=== PATIENT | male | born 1985 | race Caucasian/White ===

== ENCOUNTER 2019-05-22 03:08 | Emergency (ER) | payer OTHER ==
[~2019-05-22] VITALS: Ht 172.7 cm; Wt 99.3 kg
[2019-05-22 03:15] VITALS: Ht 172.7 cm; Wt 99.3 kg
[2019-05-22 04:13] LABS: BASOPHIL % 0.4 % (0-2); PLATELET COUNT 232 x10^3mcL (130-400); RED CELL DISTRIBUTION WIDTH 12.8 % (11.5-14.5)
[2019-05-22 04:22] LABS: CALCIUM 9.2 mg/dL (8.5-10.1); CHLORIDE SERUM 100 mmol/L (98-107); CREATININE SERUM 1.1 mg/dL (0.7-1.3); GFR1 > 60 mL/min; GLUCOSE SERUM 114 mg/dL (74-106); POTASSIUM SERUM 4.2 mmol/L (3.5-5.1); SODIUM SERUM 139 mmol/L (136-145)
[2019-05-22 04:26] LABS: ALBUMIN 4.2 g/dL (3.4-5.0); ALKALINE PHOSPHATASE 82 U/L (46-116); ALT/SGPT 42 U/L (16-63); AST/SGOT 20 U/L (15-37); BILIRUBIN TOTAL 1.16 mg/dL (0.20-1.00); LIPASE 115 IU/L (73-393)
[2019-05-22 04:32] LABS: TOTAL PROTEIN, SERUM 8.7 g/dL (6.4-8.2)
[2019-05-22 06:35] VITALS: BP 120/60
== END 2019-05-22 06:35 | disposition home or self-care (01) ==
LOC: ED 03:08
PROVIDERS: Emergency Medicine
DX: R10.84 Generalized abdominal pain (principal); R53.1 Weakness
CPT/HCPCS: J2270; J2405; Q0092